=== PATIENT | male | born 1990 | race Caucasian/White ===

== ENCOUNTER 2020-12-22 11:43 | Emergency (ER) | payer OTHER, MEDICAID, SELFPAY ==
[2020-12-22 11:50] VITALS: BP 140/95; PULSE 119; RESP 20; TEMP 37.2; O2SAT 96; BMI 20.3
--- NOTE | 2020-12-22 12:17 | ED_ITS ---
HPI - Wound/Laceration General Chief Complaint: Wound/Laceration Stated Complaint: head injury 1 week Time Seen by Provider: 12/22/20 12:07 Source: patient Mode of arrival: Ambulatory History of Present Illness HPI narrative: 30-year-old male with an admitted history of methamphetamine abuse is here for evaluation for concerns about proteins in his hair and also would like evaluation for infection in his cerebellum. Patient is unwilling /unable to provide any further HPI Review of Systems Review of Systems ROS Unobtainable: Other (High on methamphetamine) Patient History Medical History Methamphetamine abuse Social History Smoking Status: Current every day smoker Smoking Status: Current every day smoker alcohol intake frequency: 0-2 drinks per day Substance Use Type: methamphetamine Exam Initial Vital Signs Initial Vital Signs: Vital Signs Temperature 99 F 12/22/20 11:50 Pulse Rate 119 H 12/22/20 11:50 Respiratory Rate 20 12/22/20 11:50 Blood Pressure 140/95 H 12/22/20 11:50 Pulse Oximetry 96 12/22/20 11:50 Const General: No cooperative and disheveled HENMT Head: abrasion (Top of head) Resp Effort & Inspection: normal respiratory effort Cardio Rate: tachycardic Skin Other: There appears to be a superficial abrasion on the top of his head Neuro General: patient alert and patient awake Extrem General: normal to inspection Course Vital Signs Vital signs: Vital Signs - 8 hr 12/22/20 11:50 Temperature 99 F Pulse Rate 119 H Respiratory Rate 20 Blood Pressure 140/95 H Pulse Oximetry 96 MDM - Wound/Laceration MDM Narrative Medical decision making narrative: Patient was unwilling/unable to provide any HPI to me. The concerns about a issues with the proteins in his hair and also a cerebellar infection were given to the nursing staff. He would not let me examine him. He does not appear to have any infection on a very cursory exam. I have a very high suspicion that his symptoms are related to his methamphetamine abuse. Patient was discharged home. Discharge Plan Departure Patient Disposition: Home Clinical Impression: Methamphetamine abuse Instructions: Substance Use Disorder Activity Restrictions/Additional Instructions: Recommend that you contact your primary doctor for follow-up. If you do not have a primary doctor you can contact [phone].
--- NOTE | 2020-12-22 12:25 | PC.NURSE ---
Pt up for discharge and requesting to leave prior to obtaining paperwork. Pt given belongings that were in locker #6 and escorted to lobby.
== END 2020-12-22 12:28 | disposition home or self-care (01) ==
PROVIDERS: Emergency Provider Emergency Medicine
DX: F15.10 Other stimulant abuse, uncomplicated (principal)
CPT/HCPCS: 99281